=== PATIENT | female | born 1985 | race African-American/Black ===

== ENCOUNTER 2017-03-26 23:24 | Emergency (ER) | payer OTHER ==
[~2017-03-26] VITALS: Ht 175.3 cm; Wt 90.7 kg
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
[2017-03-27] MEDS ORDERED: TYLENOL325 MG ORAL (00:01)
[2017-03-27 00:10] VITALS: BP 150/111
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
== END 2017-03-27 00:04 ==
LOC: EDBD 23:24 → EMR 23:45
DX: S69.91XA Unspecified injury of right wrist, hand and finger(s), initial encounter (principal); V47.5XXA Car driver injured in collision with fixed or stationary object in traffic accident, initial encounter; Y92.410 Unspecified street and highway as the place of occurrence of the external cause
CPT/HCPCS: 99283